=== PATIENT | female | born 1935 | race Caucasian/White ===

== ENCOUNTER 2022-03-25 17:36 | Inpatient (IN) | payer MEDICARE, OTHER ==
[2022-03-25 18:44] LABS: #Basophils 0.1 10x3/uL (0.0-0.2); #Eosinphils 0.5 10x3/uL (0.0-0.5); #Monocytes 0.6 10x3/uL (0.0-1.1); #Neutrophils 7.4 10x3/uL (1.5-8.4); %Basophils 0.7 % (0.0-2.0); %Eosinophils 4.5 % (0.0-6.0); %Lymphocytes 18.6 % (18.0-47.0); %Monocytes 5.7 % (0.0-10.0); %Neutrophils 70.2 % (40.0-75.0); Hemoglobin 10.8 g/dL (12.0-15.5); Mean Corpuscular HGB CONC 32.1 g/dL (32.0-36.0); Mean Corpuscular Hemoglobin 26.8 pg (27.0-33.0); Mean Corpuscular Volume 83.4 fl (81.6-98.3); Mean Platelet Volume 9.2 fl (7.4-10.4); Platelet Count 280 10x3/uL (150-450); RBC Distribution Width 14.7 % (11.5-14.5); Red Blood Cell (RBC) Count 4.03 10x6/uL (3.90-5.03); White Blood Cell (WBC) Count 10.5 10x3/uL (3.5-10.5)
[2022-03-25 18:59] LABS: ALT (SGPT) 10 U/L (8-55); AST (SGOT) 20 U/L (5-34); Albumin 3.6 g/dL (3.4-4.8); Alkaline Phosphatase 76 U/L (40-110); Anion Gap 12 mmol/L (10-20); BUN (Urea Nitrogen) 32 mg/dL (9.8-20.1); Bilirubin, Total 0.4 mg/dL (0.2-1.2); Calc. Creatinine Clearance 0 mL/min (70-130); Calcium 9.4 mg/dL (7.8-10.44); Carbon Dioxide 26 mmol/L (23-31); Chloride 105 mmol/L (98-107); Estimated GFR 44; Globulin 4.1 g/dL (2.4-3.5); Glucose 112 mg/dL (83-110); Potassium 4.1 mmol/L (3.5-5.1); Protein, Total 7.7 g/dL (5.8-8.1); Sodium 139 mmol/L (136-145)
[2022-03-25] MEDS ORDERED: Clindamycin/D5W 900 MG in Premix Bag 1 BAG IVPB SCH (20:15)
[2022-03-25] MEDS ORDERED: Bacitracin 1 PK ONE (21:11)
[2022-03-25] MEDS ORDERED: Senokot S 8.6-50 MG TAB PO PRN (21:32)
[2022-03-25] MEDS ORDERED: Communication Order-Pharmacy FS ONE (21:36)
[2022-03-25] MEDS ORDERED: Vancomycin HCl 1.75 GM in Sodium Chloride 0.9% 500 ML IVPB SCH (21:45)
[2022-03-26 00:22] VITALS: BMI 33.0
[2022-03-26] MEDS ORDERED: Cefepime 2 GM VIAL ONE (00:51)
[2022-03-26] MEDS: Sodium Chloride 0.9% 1,000 ML IV SCH ×2 (00:54→11:09)
[2022-03-26] MEDS ORDERED: VANCOMYCIN 1.75 GM/350 ML BAG 1.75 GM in Premix Bag 1 BAG IVPB SCH (01:00)
[2022-03-26] MEDS ORDERED: Cefepime 2 GM in Sodium Chloride 0.9% 100 ML IVPB SCH (02:00)
[2022-03-26 03:52] LABS: ALT (SGPT) 9 U/L (8-55); AST (SGOT) 17 U/L (5-34); Albumin 3.2 g/dL (3.4-4.8); Alkaline Phosphatase 66 U/L (40-110); Anion Gap 11 mmol/L (10-20); BUN (Urea Nitrogen) 30 mg/dL (9.8-20.1); Bilirubin, Total 0.4 mg/dL (0.2-1.2); Calc. Creatinine Clearance 55 mL/min (70-130); Carbon Dioxide 27 mmol/L (23-31); Chloride 106 mmol/L (98-107); Estimated GFR 56; Globulin 3.4 g/dL (2.4-3.5); Glucose 108 mg/dL (83-110); Potassium 3.7 mmol/L (3.5-5.1); Protein, Total 6.6 g/dL (5.8-8.1); Sodium 140 mmol/L (136-145)
[2022-03-26] MEDS: Levothyroxine Sodium 75 MCG TAB PO SCH (06:54)
[2022-03-26] MEDS: Aspirin Chewable 81 MG TAB PO SCH (11:08)
[2022-03-26] MEDS: Polyethylene Glycol 3350 17 GM Packet PO SCH (11:08)
[2022-03-26] MEDS: Clopidogrel Bisulfate 75 MG TAB PO SCH (11:08)
[2022-03-26] MEDS: Cholecalciferol 1,000 UNITS (25 MCG) TAB PO SCH (11:08)
[2022-03-26] MEDS: Multivitamin W/ Minerals 1 TAB PO SCH (11:08)
[2022-03-26] MEDS: Losartan 25 MG TAB PO SCH ×2 (11:08→21:08)
[2022-03-26] MEDS: Cefepime 1 GM in Sodium Chloride 0.9% 100 ML IVPB SCH (15:26)
[2022-03-26] MEDS: Atorvastatin Calcium 10 MG TAB PO SCH (21:08)
[2022-03-26] MEDS: Escitalopram Oxalate 10 mg Tablet PO SCH (21:08)
[2022-03-26] MEDS ORDERED: Vancomycin HCl 1.25 GM in Sodium Chloride 0.9% 250 ML 300 ML IVPB SCH (22:00)
[2022-03-27] MEDS: VANCOMYCIN 1.25 GM/250 ML BAG 1.25 GM in Premix Bag 1 BAG IVPB SCH (01:16)
[2022-03-27] MEDS: Sodium Chloride 0.9% 1,000 ML IV SCH ×2 (01:19→13:57)
[2022-03-27] MEDS: Cefepime 1 GM in Sodium Chloride 0.9% 100 ML IVPB SCH ×2 (02:58→13:40)
[2022-03-27] MEDS: Levothyroxine Sodium 75 MCG TAB PO SCH (05:37)
[2022-03-27] MEDS: Aspirin Chewable 81 MG TAB PO SCH (08:48)
[2022-03-27] MEDS: Losartan 25 MG TAB PO SCH ×2 (08:49→21:54)
[2022-03-27] MEDS: Multivitamin W/ Minerals 1 TAB PO SCH (08:49)
[2022-03-27] MEDS: Cholecalciferol 1,000 UNITS (25 MCG) TAB PO SCH (08:49)
[2022-03-27] MEDS: Clopidogrel Bisulfate 75 MG TAB PO SCH (08:49)
[2022-03-27] MEDS: Polyethylene Glycol 3350 17 GM Packet PO SCH (08:50)
[2022-03-27] MEDS: Escitalopram Oxalate 10 mg Tablet PO SCH (21:54)
[2022-03-27] MEDS: Atorvastatin Calcium 10 MG TAB PO SCH (21:54)
[2022-03-28] MEDS: VANCOMYCIN 1.25 GM/250 ML BAG 1.25 GM in Premix Bag 1 BAG IVPB SCH (00:27)
[2022-03-28 00:46] LABS: Vancomycin, Trough 11.4 ug/mL
[2022-03-28] MEDS: Cefepime 1 GM in Sodium Chloride 0.9% 100 ML IVPB SCH ×2 (02:30→16:45)
[2022-03-28] MEDS: Levothyroxine Sodium 75 MCG TAB PO SCH (07:22)
[2022-03-28] MEDS: Sodium Chloride 0.9% 1,000 ML IV SCH ×2 (07:24→16:45)
[2022-03-28] MEDS: Aspirin Chewable 81 MG TAB PO SCH (09:39)
[2022-03-28] MEDS: Cholecalciferol 1,000 UNITS (25 MCG) TAB PO SCH (09:40)
[2022-03-28] MEDS: Clopidogrel Bisulfate 75 MG TAB PO SCH (09:40)
[2022-03-28] MEDS: Losartan 25 MG TAB PO SCH (09:41)
[2022-03-28] MEDS: Multivitamin W/ Minerals 1 TAB PO SCH (09:41)
[2022-03-28] MEDS: Polyethylene Glycol 3350 17 GM Packet PO SCH (10:32)
[2022-03-28 17:53] VITALS: TEMP 98.3
[2022-03-28 17:56] VITALS: BP 144/65
[2022-03-29] MEDS ORDERED: VANCOMYCIN 1.25 GM/250 ML BAG 1.25 GM in Premix Bag 1 BAG IVPB SCH (01:00)
[2022-03-29] MEDS ORDERED: Vancomycin 1.5 GRAM/300 ML BAG 1.5 GM in Premix Bag 1 BAG IVPB SCH (01:00)
== END 2022-03-28 17:33 | DRG 300 ==
LOC: CSHERS 17:36 → CSHTELE 23:16
PROVIDERS: ADMIT Family Medicine; ATTEND Internal Medicine
DX: I87.2 Venous insufficiency (chronic) (peripheral) (principal); L03.116 Cellulitis of left lower limb; I10 Essential (primary) hypertension; E89.0 Postprocedural hypothyroidism; K21.9 Gastro-esophageal reflux disease without esophagitis; Z86.718 Personal history of other venous thrombosis and embolism; Z88.0 Allergy status to penicillin; Z79.82 Long term (current) use of aspirin; Z79.890 Hormone replacement therapy; Z79.899 Other long term (current) drug therapy; Z86.73 Personal history of transient ischemic attack (TIA), and cerebral infarction without residual deficits; Z90.49 Acquired absence of other specified parts of digestive tract; Z83.3 Family history of diabetes mellitus
CPT/HCPCS: 36415; 80053; 80202; 83735; 85025; 87070; 87205; 96365; 97139; J0692; J1650; J3370; J3490; J7050

== ENCOUNTER 2022-04-18 08:42 | Outpatient (CLI) | payer MEDICARE, OTHER | END 2022-04-18 08:43 | disposition home or self-care (01) | LOC: CSHWCC 08:42 | PROVIDERS: ATTEND Nurse Practitioner Family | DX: I87.332 Chronic venous hypertension (idiopathic) with ulcer and inflammation of left lower extremity (principal); L97.822 Non-pressure chronic ulcer of other part of left lower leg with fat layer exposed; R60.0 Localized edema | CPT/HCPCS: 29581; 97139; G0463; 99203 ==

== ENCOUNTER 2022-04-25 15:10 | Outpatient (CLI) | payer MEDICARE, OTHER | END 2022-04-25 15:11 | disposition home or self-care (01) | LOC: CSHWCC 15:10 | PROVIDERS: ATTEND Nurse Practitioner Family | DX: I87.332 Chronic venous hypertension (idiopathic) with ulcer and inflammation of left lower extremity (principal); L97.822 Non-pressure chronic ulcer of other part of left lower leg with fat layer exposed; R60.0 Localized edema | CPT/HCPCS: 11042; 11045 ==

== ENCOUNTER 2022-05-09 13:27 | Outpatient (CLI) | payer MEDICARE, OTHER | END 2022-05-09 13:28 | disposition home or self-care (01) | LOC: CSHWCC 13:27 | PROVIDERS: ATTEND Nurse Practitioner Family | DX: I87.332 Chronic venous hypertension (idiopathic) with ulcer and inflammation of left lower extremity (principal); L97.822 Non-pressure chronic ulcer of other part of left lower leg with fat layer exposed; R60.0 Localized edema | CPT/HCPCS: 29581 ==

== ENCOUNTER 2022-05-16 10:04 | Outpatient (CLI) | payer MEDICARE, OTHER | END 2022-05-16 10:05 | disposition home or self-care (01) | LOC: CSHWCC 10:04 | PROVIDERS: ATTEND Nurse Practitioner Family | DX: I87.332 Chronic venous hypertension (idiopathic) with ulcer and inflammation of left lower extremity (principal); L97.822 Non-pressure chronic ulcer of other part of left lower leg with fat layer exposed; R60.0 Localized edema | CPT/HCPCS: 29581 ==

== ENCOUNTER 2022-05-30 15:16 | Outpatient (CLI) | payer MEDICARE, OTHER | END 2022-05-30 15:17 | disposition home or self-care (01) | LOC: CSHWCC 15:16 | PROVIDERS: ATTEND Nurse Practitioner Family | DX: I87.332 Chronic venous hypertension (idiopathic) with ulcer and inflammation of left lower extremity (principal); L97.822 Non-pressure chronic ulcer of other part of left lower leg with fat layer exposed; R60.0 Localized edema ==

== ENCOUNTER 2022-06-13 14:29 | Outpatient (CLI) | payer MEDICARE, OTHER | END 2022-06-13 14:30 | disposition home or self-care (01) | LOC: CSHWCC 14:29 | PROVIDERS: ATTEND Nurse Practitioner Family | DX: R60.0 Localized edema (principal); I87.333 Chronic venous hypertension (idiopathic) with ulcer and inflammation of bilateral lower extremity; L97.822 Non-pressure chronic ulcer of other part of left lower leg with fat layer exposed ==

== ENCOUNTER 2022-06-20 13:42 | Outpatient (CLI) | payer MEDICARE, OTHER | END 2022-06-20 13:43 | disposition home or self-care (01) | LOC: CSHWCC 13:42 | PROVIDERS: ATTEND Nurse Practitioner Family | DX: R60.0 Localized edema (principal); I87.332 Chronic venous hypertension (idiopathic) with ulcer and inflammation of left lower extremity; L97.822 Non-pressure chronic ulcer of other part of left lower leg with fat layer exposed ==

== ENCOUNTER 2022-08-30 13:00 | Outpatient (CLI) | payer MEDICARE, OTHER | END 2022-08-30 13:01 | disposition home or self-care (01) | LOC: CSHWCC 13:00 | PROVIDERS: ATTEND Nurse Practitioner Family | DX: R60.0 Localized edema (principal); I87.332 Chronic venous hypertension (idiopathic) with ulcer and inflammation of left lower extremity; L97.822 Non-pressure chronic ulcer of other part of left lower leg with fat layer exposed | CPT/HCPCS: 97139; 97597; 97598; G0463; 99213 ==

== ENCOUNTER 2022-09-28 15:21 | Outpatient (CLI) | payer MEDICARE, OTHER | END 2022-09-28 15:22 | disposition home or self-care (01) | LOC: CSHWCC 15:21 | PROVIDERS: ATTEND Nurse Practitioner Family | DX: R60.1 Generalized edema (principal); I87.332 Chronic venous hypertension (idiopathic) with ulcer and inflammation of left lower extremity; L97.822 Non-pressure chronic ulcer of other part of left lower leg with fat layer exposed | CPT/HCPCS: 29581 ==

== ENCOUNTER 2022-10-19 13:06 | Outpatient (CLI) | payer MEDICARE, OTHER | END 2022-10-19 13:07 | disposition home or self-care (01) | LOC: CSHWCC 13:06 | PROVIDERS: ATTEND Nurse Practitioner Family | DX: I87.332 Chronic venous hypertension (idiopathic) with ulcer and inflammation of left lower extremity (principal); L97.822 Non-pressure chronic ulcer of other part of left lower leg with fat layer exposed; R60.0 Localized edema | CPT/HCPCS: 29581 ==